=== PATIENT | male | born 1950 | race Caucasian/White ===

== ENCOUNTER 2018-05-24 14:07 | Outpatient (CLI) | payer MEDICARE ==
--- NOTE | 2018-05-24 19:13 | RAD ---
LEFT ANKLE THREE VIEWS: 05/24/18 No fracture was seen. The articular surfaces were unremarkable. There were no acute bony changes. Den se arterial calcifications are present. IMPRESSION: No acute bony finding. POS: HOME
== END 2018-05-24 14:08 | disposition home or self-care (01) ==
LOC: BURRAD 14:07
PROVIDERS: ATTEND Family Medicine
DX: M25.572 Pain in left ankle and joints of left foot (principal)

== ENCOUNTER 2019-12-26 16:21 | Emergency (ER) | payer MEDICARE ==
[2019-12-26 17:04] LABS: Mean Corpuscular HGB CONC 30.3 g/dL (32.0-36.0); Mean Corpuscular Hemoglobin 33.7 pg (27.0-31.0); Mean Platelet Volume 7.3 fL (7.4-10.4); Platelet Count 265 thou/uL (130-400); Red Blood Cell (RBC) Count 3.56 mill/uL (4.70-6.10); White Blood Cell (WBC) Count 14.6 thou/uL (4.8-10.8)
[2019-12-26 17:16] LABS: #Basophils 0.1 thou/uL (0.0-0.2); #Lymphocytes 0.7 thou/uL (1.20-3.40); #Monocytes 0.9 thou/uL (0.11-0.59); #Neutrophils 12.9 thou/uL (1.40-6.50); %Basophils 0.6 % (0.0-1.0); %Lymphocytes 4.6 % (21.0-51.0); %Monocytes 6.4 % (0.0-10.0); %Neutrophils 88.4 % (42.0-75.0); MDiff Complete? YES; Macrocytosis MODERATE=16-30 cells (100X) (0-5/hpf)
[2019-12-26 17:20] LABS: ALT (SGPT) 31 U/L (8-55); AST (SGOT) 98 U/L (5-34); Alkaline Phosphatase 129 U/L (40-110); Anion Gap 17 mmol/L (10-20); BUN (Urea Nitrogen) 47 mg/dL (8.4-25.7); Bilirubin, Total 0.8 mg/dL (0.2-1.2); Calc. Creatinine Clearance 0 mL/min (70-130); Carbon Dioxide 17 mmol/L (23-31); Chloride 104 mmol/L (98-107); Estimated GFR-MDRD 15; Globulin 3.7 g/dL (2.4-3.5); Glucose 129 mg/dL (83-110); Lipase 15 U/L (8-78); Protein, Total 6.7 g/dL (5.8-8.1); Sodium 130 mmol/L (136-145)
[2019-12-26 17:33] LABS: Potassium 8.2 mmol/L (3.5-5.1)
--- NOTE | 2019-12-26 17:49 | RAD ---
CERVICAL SPINE THREE VIEWS: 12/26/19 No prior films were available for comparison. No fracture or dislocation was seen. There is a 3 mm anterior subluxation of C4 on C5 that is probabl y due to a combination of the patient flexing his neck and facet arthritis. No fracture, perched face ts, or acute bony change was seen. There is also similar anterior subluxation of C3 on C4 by about th e same amount probably for the same reasons. Disc space narrowing is present at C3-C4, C5-C6, and per haps C6-C7. The soft tissues are normal in thickness and the C1 to dens distance is normal. The syri nx is more distended with air than usual, significance unknown. Carotid calcifications are present bi laterally, but those on the left are extremely dense. IMPRESSION: Degenerative changes throughout the cervical spine. See above. POS: HOME
--- NOTE | 2019-12-26 18:06 | CT ---
CT OF THE BRAIN WITHOUT CONTRAST: 12/26/19 No prior films are available for comparison. Diffuse atrophy is present with ventricular sizes appropriate for age and atrophy. No intracranial bl eeding, mass, or sign of acute stroke was found. There is patchy hypodensity throughout the deep whit e matter consistent with chronic microvascular ischemia. Small acute strokes could be missed against this background. On slice 5 there is a questionable hyperdensity in the left middle cranial fossa. Th eoretically, this could be a small meningioma, but it just as easily could be volume averaging with t he skull below. In either case, its significance is felt to be very doubtful. The vertebral arteries are extremely calcified as they approach their termination in the basilar artery. If the clinical sym ptoms were appropriate, vertebrobasilar insufficiency might be a possibility. The skull appears juliana l for age. The visible paranasal sinuses are clear. The mastoid air cells are clear. IMPRESSION: Atrophy and chronic ischemic changes but no acute findings. Preliminary report called to Dr. Chiu at 1752 on 12/26/19. POS: HOME
--- NOTE | 2019-12-26 18:20 | CT ---
CT OF THE CERVICAL SPINE 12/26/[address] of the cervical spine was performed for evaluation following difficulty keeping the head up and an abnormal plain film. No fracture, dislocation, or acute bony change was seen. The C1 to dens distance is normal. Disc spac e narrowing is present at C3-C4, C5-C6, and C6-C7. There is a small 3 mm anterior subluxation of C3 o n C4, probably due to facet arthritis. The subluxation of C4 on C5 seen on the plain films is not bryon dent there, indicating that there is probably a little hypermobility at this level. Findings by level follow: C1-C2: No acute finding. C2-C3: No acute findings. C3-C4: Severe bilateral facet arthritis and severe bilateral foraminal narrowing. C4-C5: Mild left foraminal narrowing. Left facet joint overgrown. C5-C6: Severe right foraminal narrowing and moderate left foraminal narrowing. Uncovertebral osteophy bryan causing some central canal narrowing to about 9 mm in AP diameter. C6-C7: Severe right foraminal narrowing and moderate to severe left foraminal narrowing. C7-T1: No acute findings. T1-T2: No acute findings. T2-T3: No acute findings. Scarring is seen in the right lung apex. IMPRESSION: Diffuse degenerative changes and subluxations as noted. No acute bony findings. POS: HOME
[2019-12-26] MEDS ORDERED: Insulin Regular 300 UNITS/3 ML VIAL ONE (18:33)
[2019-12-26] MEDS ORDERED: Dextrose 50% Abboject 50 ML SYRINGE ONE (18:33)
[2019-12-26 18:35] LABS: Bilirubin Small (Negative); Blood, Urine Negative (Negative); Clarity Clear (Clear); Glucose, Urine (Dipstick) Negative (Negative); Leukocyte Negative (Negative); Nitrite Negative (Negative); Protein, Urine (Dipstick) 100 mg/dL (Neg-Trace); Urobilinogen 0.2 mg/dL (Less than 2)
[2019-12-26 18:44] LABS: Glucose 378 mg/dL (83-110)
[2019-12-26 18:47] LABS: Bacteria/HPF Rare-Few HPF (None Seen); RBC/HPF 0-3 HPF (0-3); Squamous Epithelial 0-3 HPF (0-3); WBC/HPF 0-3 HPF (0-3)
[2019-12-26 18:48] LABS: Mucous/LPF Rare LPF (<2+)
== END 2019-12-26 19:15 | disposition short-term general hospital (02) ==
LOC: BURERS 16:21
DX: E87.5 Hyperkalemia (principal); E87.1 Hypo-osmolality and hyponatremia; E86.9 Volume depletion, unspecified; N28.9 Disorder of kidney and ureter, unspecified; I10 Essential (primary) hypertension; F41.9 Anxiety disorder, unspecified; Z79.899 Other long term (current) drug therapy
CPT/HCPCS: 36415; 36416; 70450; 72040; 72125; 80053; 81003; 81015; 83690; 85025; 93005; 96361; 96374; 96375; J1815